=== PATIENT | male | born 1940 ===

== ENCOUNTER 2018-02-23 06:25 | Day surgery (SDC) | payer MEDICARE ==
[2018-02-23 07:00] VITALS: BMI 35.4
[2018-02-23] MEDS ORDERED: Midazolam 2 MG/2 ML VIAL ONE (07:23)
[2018-02-23] MEDS ORDERED: Etomidate 20 mg/10ml Inj IV ONE (07:24)
[2018-02-23 07:28] LABS: INR 1.09 (0.93-1.08); PARTIAL THROMBOPLASTIN TIME 27.1 Seconds (25.1-36.5); PROTHROMBIN TIME 12.5 SECONDS (9.4-12.5)
[2018-02-23] MEDS ORDERED: Lidocaine 1% Inj (20ml) ONE (07:29)
[2018-02-23] MEDS ORDERED: Bupivacaine 0.5% Inj(30mL) ONE (07:29)
[2018-02-23] MEDS ORDERED: Lidocaine 1% w Epi 1:100,000 Inj ONE (07:29)
[2018-02-23] MEDS ORDERED: HYDROmorphone 0.5 mg/0.5 ml ISec IVP PRN (08:32)
[2018-02-23] MEDS ORDERED: Lactated Ringer's 1,000 ML IV SCH (08:45)
[2018-02-23] MEDS ORDERED: Oxycodone/Acetaminophen 5/325 mg Tab PO PRN (08:50)
[2018-02-23 09:19] VITALS: TEMP 97.4; O2SAT 98
[2018-02-23 10:25] VITALS: BP 104/55; PULSE 70; RESP 183
--- NOTE | 2018-03-17 06:17 | OP ---
PROCEDURE DATE: 02/23/2018 DESCRIPTION OF PROCEDURE: In the operating room, the patient was identified by name, number, birthday. The previously marked lesion was identified. The area was cleaned, dried and after the successful time-out and waiting 3 minutes for the prep, the area was given IV sedation followed by local anesthetic. Approximately 20 mL of Xylocaine were placed with Marcaine 1:1. Ellipse was made and the entire lesion was removed. Flaps were raised superiorly and inferiorly. The incision was closed with Vicryl followed by a subcuticular PDS. The patient was taken to the recovery room in good condition after the sponge and needle count was declared correct. Yannick Feldman MD
== END 2018-02-23 10:40 | disposition home or self-care (01) ==
LOC: SDS 06:25
PROVIDERS: ATTEND Surgery
DX: D17.21 Benign lipomatous neoplasm of skin and subcutaneous tissue of right arm (principal)
CPT/HCPCS: 24071; 36415; 85610; 85730; 88307; J0690; J1170; J2250; J3010; J7120 ×2